=== PATIENT | male | born 1955 | race African-American/Black ===

== ENCOUNTER 2016-08-27 18:55 | Emergency (ER) | payer SELFPAY ==
[~2016-08-27] VITALS: Ht 172.7 cm; Wt 109.0 kg
[2016-08-27] MEDS ORDERED: BACITRACIN ZINC OINT UDPKT TOP ONE (20:30)
[2016-08-27] MEDS ORDERED: TETANUS, DIPHTHERIA, PERTUSSIS VAC/PF 0.5ML (>7YR OLD) IM ONE (20:30)
[2016-08-27] MEDS ORDERED: LIDOCAINE HCL 1% 20ML VIAL (Pyxis) INJ MC ONE (20:30)
[2016-08-27 21:42] VITALS: BP 134/87
== END 2016-08-27 22:52 | disposition home or self-care (01) ==
LOC: ER 21:51
DX: S51.851A Open bite of right forearm, initial encounter (principal); I10 Essential (primary) hypertension; W54.0XXA Bitten by dog, initial encounter; Y93.89 Activity, other specified; Y99.8 Other external cause status; Y92.89 Other specified places as the place of occurrence of the external cause
CPT/HCPCS: 12002; 73090; 90471; 90715; 99284; J3490; X7700; Z7610

== ENCOUNTER 2016-09-06 15:46 | Emergency (ER) | payer SELFPAY ==
[~2016-09-06] VITALS: Ht 172.7 cm; Wt 104.0 kg
[2016-09-06 16:13] VITALS: BP 145/99
[2016-09-06] MEDS ORDERED: BACITRACIN ZINC OINT UDPKT TOP ONE (16:15)
== END 2016-09-06 17:03 | disposition home or self-care (01) ==
LOC: ER 15:46
DX: S86.9 Injury of unspecified muscle and tendon at lower leg level (principal); I10 Essential (primary) hypertension
CPT/HCPCS: 99281